=== PATIENT | female | born 1965 | race Two or more races ===

== ENCOUNTER 2023-09-11 09:18 | Emergency (ER) | payer OTHER ==
[~2023-09-11] VITALS: Ht 157.5 cm; Wt 90.7 kg
[2023-09-11] MEDS ORDERED: JANUMET XR 50-1 EAC1 PO (10:02)
[2023-09-11] MEDS ORDERED: GLIPIZIDE10 MG PO (10:02)
[2023-09-11] MEDS ORDERED: SYNTHROID175 MCG PO (10:02)
[2023-09-11] MEDS ORDERED: ATORVASTATIN CA20 MG PO (10:03)
== END 2023-09-11 12:46 | disposition home or self-care (01) ==
LOC: ER 09:18
DX: J32.9 Chronic sinusitis, unspecified (principal); R05.9 Cough, unspecified

== ENCOUNTER 2025-07-29 07:23 | Outpatient (CLI) | payer OTHER ==
[~2025-07-29 07:23] MED LIST: ATORVASTATIN CA20 MG PO; GLIPIZIDE10 MG PO; JANUMET XR 50-1 EAC1 PO; SYNTHROID175 MCG PO
== END 2025-07-29 07:26 | disposition home or self-care (01) ==
LOC: TOM 07:23
DX: R51.9 Headache, unspecified (principal); M54.2 Cervicalgia; M62.830 Muscle spasm of back; S09.90XA Unspecified injury of head, initial encounter